=== PATIENT | male | born 1940 | race Caucasian/White ===

== ENCOUNTER 2021-09-18 12:26 | Emergency (ER) | payer MEDICARE, OTHER ==
[~2021-09-18] VITALS: Ht 177.8 cm; Wt 73.0 kg
[2021-09-18 13:05] LABS: BASOPHILS % 0.4 % (0.0-2.0); EOSINOPHILS % 0.4 % (0.0-5.0); HEMATOCRIT. 44.2 % (42.0-52.0); HEMOGLOBIN. 15.4 g/dL (14.0-18.0); LYMPHOCYTES % 20.4 % (20.0-50.0); MEAN CORPUSCULAR HEMOGLOBIN 31.1 pg (28.0-32.0); MEAN CORPUSCULAR VOLUME 89.1 fL (80.0-94.0); MEAN PLATELET VOLUME 9.1 fl (7.4-10.4); NEUTROPHILS % 70.8 % (40.0-76.0); PLATELET 160 x1000/uL (130-400); RED BLOOD CELL COUNT 4.96 mill/uL (4.7-6.1); RED CELL DISTRIBUTION WIDTH 13.3 % (11.6-14.6)
[2021-09-18 13:12] LABS: CHLORIDE 104 mEq/L (98-107)
[2021-09-18 13:15] LABS: INR 1.1; PROTHROMBIN TIME 11.6 sec (9.6-11.0)
[2021-09-18] MEDS ORDERED: LABETALOL HCL VIAL 20 MG/4 ML VIAL IV ONE (13:15)
[2021-09-18 13:22] LABS: ETHANOL BLOOD < 10 mg/dL
[2021-09-18] MEDS ORDERED: AZITHROMYCIN 500 MG in DEXT 5% WATER 250 ML IV ONE (14:15)
[2021-09-18] MEDS ORDERED: CEFTRIAXONE 1 G PREMIX 50 ML IV ONE (14:15)
[2021-09-18] MEDS ORDERED: OLANZAPINE 10 MG/VIAL IM ONE (15:00)
[2021-09-18 15:39] LABS: CLARITY URINE CLEAR (CLEAR); COLOR URINE YELLOW (YELLOW); KETONES URINE TRACE (NEGATIVE); LEUKOCYTE ESTERASE URINE NEGATIVE (NEGATIVE); NITRITE URINE NEGATIVE (NEGATIVE); OCCULT BLOOD URINE NEGATIVE (NEGATIVE); PH URINE 6.5 (4.5-8.0); PROTEIN URINE TRACE (NEGATIVE); SPECIFIC GRAVITY URINE 1.011 (1.005-1.030)
[2021-09-18 15:59] LABS: *AMPHETAMINES SCREEN URINE NEGATIVE (NEGATIVE); *BARBITURATES SCREEN URINE NEGATIVE (NEGATIVE); *BENZODIAZEPINES SCREEN URINE NEGATIVE (NEGATIVE); *COCAINE SCREEN URINE NEGATIVE (NEGATIVE); CANNABINOID URINE SCREEN NEGATIVE (NEGATIVE); METHADONE URINE SCREEN NEGATIVE (NEGATIVE); OPIATES URINE SCREEN NEGATIVE (NEGATIVE); PHENCYCLIDINE URINE SCREEN NEGATIVE (NEGATIVE)
[2021-09-18] MEDS ORDERED: DIPHENHYDRAMINE 50MG/ML VIAL IV ONE (16:00)
[2021-09-18] MEDS ORDERED: LORAZEPAM 2MG/ML CPJ IV ONE (16:00)
[2021-09-18 18:29] VITALS: BP 201/75
== END 2021-09-18 18:41 | disposition short-term general hospital (02) ==
LOC: ER 12:45
DX: J18.9 Pneumonia, unspecified organism (principal); N17.9 Acute kidney failure, unspecified; R51.9 Headache, unspecified; Z20.822 Contact with and (suspected) exposure to COVID-19
CPT/HCPCS: 36415; 70450; 71045; 80053; 80305; 80320; 81003; 83605; 83690; 83880; 84484; 85025; 85610; 86850; 86900; 86901; 87426; 93005; 96372; 96374; 96375; 99285; J0456; J0696; J1200; J2060; J3490; J7060; G0480